=== PATIENT | female | born 1960 | race Two or more races ===

== ENCOUNTER 2020-05-29 07:12 | Day surgery (SDC) | payer OTHER ==
[~2020-05-29 07:12] MED LIST: BREO ELLIPTA 21 EACH IH; FLONASE16 GM; INTESTINEX680 M1 PO; PEPCID AC10 MG PO; PRAVASTATIN SOD20 MG PO; PROTONIX40 MG PO; SINGULAIR10 MG PO; SYNTHROID112 MCG PO; WELLBUTRIN XL150 M1 PO; XARELTO20 MG PO; ZOLOFT25 MG PO; ZYRTEC10 M3 PO
[2020-05-29] MEDS ORDERED: KEFLEX250 MG PO (12:48)
== END 2020-05-29 14:10 | disposition home or self-care (01) ==
LOC: CIR.AMB 07:12
PROVIDERS: ATTEND Obstetrics & Gynecology Gynecology
DX: T85.193A Other mechanical complication of implanted electronic neurostimulator, generator, initial encounter (principal); Z20.828 Contact with and (suspected) exposure to other viral communicable diseases
CPT/HCPCS: 64590; 95971; L8679